=== PATIENT | female | born 1955 | race Two or more races ===

== ENCOUNTER 2017-07-23 09:51 | Emergency (ER) | payer OTHER ==
[~2017-07-23] VITALS: Ht 165.1 cm; Wt 117.9 kg
[2017-07-23 10:18] VITALS: BP 140/74
== END 2017-07-23 10:22 | disposition left against medical advice (07) ==
LOC: ER 09:51
DX: H53.141 Visual discomfort, right eye (principal); Z53.21 Procedure and treatment not carried out due to patient leaving prior to being seen by health care provider